=== PATIENT | female | born 1945 | race Caucasian/White ===

== ENCOUNTER 2018-04-17 09:26 | Outpatient (CLI) | payer MEDICARE | END 2018-04-17 09:27 | disposition home or self-care (01) | LOC: BICMAMMO 09:26 | PROVIDERS: ATTEND Obstetrics & Gynecology | DX: M81.0 Age-related osteoporosis without current pathological fracture (principal); M85.88 Other specified disorders of bone density and structure, other site | CPT/HCPCS: 77080 ==

== ENCOUNTER 2018-10-07 08:16 | Outpatient (CLI) | payer MEDICARE ==
--- NOTE | 2018-10-07 09:37 | ULT ---
RENAL ULTRASOUND: DATE: 10/07/2018. COMPARISON: None. HISTORY: Chronic kidney disease. TECHNIQUE: Multiplanar, moise scale sonographic imaging of the kidneys and urinary bladder obtained. FINDINGS: The right kidney measures 9.3 x 4.5 x 4.6 cm and contains a 2.4 x 1.8 cm hypoechoic lesion with incre ased through transmission suggesting a cyst. This is a complex cyst as it contains an internal septa tion. There is an additional cyst within the superior aspect of the right kidney measuring 1.8 x 1.3 cm. No hydronephrosis. No discrete nephrolithiasis. The urinary bladder appears grossly unremarkable. The left kidney is ill-defined secondary to increased echogenicity as well as body habitus. This stephens its detailed assessment of the left kidney for a mass and nephrolithiasis. Left kidney probably dinora ures approximately 9.5 x 5.2 cm. IMPRESSION: 1. Suboptimal assessment of the left kidney, which appears grossly unremarkable. 2. Cystic lesions within the right kidney, one of which is mildly complex. Followup renal ultrasoun d in 6 months is advised to document stability. 3. No discrete hydronephrosis. POS: [facility]
== END 2018-10-07 08:17 | disposition home or self-care (01) ==
LOC: BICULT 08:16
PROVIDERS: ATTEND Family Medicine
DX: Z12.31 Encounter for screening mammogram for malignant neoplasm of breast (principal); N18.9 Chronic kidney disease, unspecified; N20.0 Calculus of kidney; N28.1 Cyst of kidney, acquired; Z80.3 Family history of malignant neoplasm of breast
CPT/HCPCS: 76770; 77063; 77067